=== PATIENT | male | born 1955 | race Caucasian/White ===

== ENCOUNTER 2023-02-20 08:21 | Day surgery (SDC) | payer MEDICARE, SELFPAY ==
--- NOTE | 2023-02-19 09:13 | HO.ANESPROP2 ---
Documented by User: Chuyita Liu NP 02/19/23 09:14 HPI - Anesthesia Eval Consult details Narrative: 67yo M for Colonoscopy [facility] Past Medical History Medical History (Updated 02/19/23 @ 06:58 by Mirtha Napier, SARMAD) Cardiology follow-up encounter Prostate cancer Internal hemorrhoids Abnormal colonoscopy Hiatal hernia Hyperlipidemia HTN (hypertension) Surgical History Surgical History (Updated 02/19/23 @ 06:58 by Mirtha Napier RN) H/O prostatectomy History of testicular surgery History of left knee surgery Social History Social History Advance Directives: No Advance Directives Information Provided: Yes Meds Allergies Allergy/AdvReac Type Severity Reaction Status Date / Time No Known Allergies Allergy Unverified 02/11/20 14:36 [No Known Allergies*] Home Medications Medication Instructions Recorded Confirmed Last Taken Type amlodipine 5 mg tablet 5 mg PO DAILY 02/19/23 Unknown History aspirin 81 mg tablet,delayed 81 mg PO DAILY 02/19/23 Unknown History release atorvastatin 80 mg tablet 80 mg PO DAILY 02/19/23 Unknown History ezetimibe 10 mg tablet 10 mg PO DAILY 02/19/23 Unknown History fluorouracil 5 % topical cream appl topical 02/19/23 Unknown History lisinopril 20 mg tablet 20 mg PO DAILY 02/19/23 Unknown History omeprazole 20 mg capsule,delayed 20 mg PO DAILY 02/19/23 Unknown History release Exam Exam Date and Time: February 19, [id number] Assessment and Plan Assessment Anesthesia Assessment: Chart Reviewed Documented by User: Michael Sutton MD 02/20/23 09:00 [facility] Past Medical History Medical History (Updated 02/19/23 @ 06:58 by Mirtha Napier, SARMAD) Cardiology follow-up encounter Prostate cancer Internal hemorrhoids Abnormal colonoscopy Hiatal hernia Hyperlipidemia HTN (hypertension) Family History Family history of problems with anesthesia: No Surgical History Surgical History (Updated 02/19/23 @ 06:58 by Mirtha Napier RN) H/O prostatectomy History of testicular surgery History of left knee surgery History of Problems with Anesthesia: No Social History Social History Advance Directives: No Advance Directives Information Provided: Yes Meds Allergies Allergy/AdvReac Type Severity Reaction Status Date / Time No Known Allergies Allergy Unverified 02/11/20 14:36 [No Known Allergies*] Home Medications Medication Instructions Recorded Confirmed Last Taken Type amlodipine 5 mg tablet 5 mg PO DAILY 02/19/23 Unknown History aspirin 81 mg tablet,delayed 81 mg PO DAILY 02/19/23 Unknown History release atorvastatin 80 mg tablet 80 mg PO DAILY 02/19/23 Unknown History ezetimibe 10 mg tablet 10 mg PO DAILY 02/19/23 Unknown History fluorouracil 5 % topical cream appl topical 02/19/23 Unknown History lisinopril 20 mg tablet 20 mg PO DAILY 02/19/23 Unknown History omeprazole 20 mg capsule,delayed 20 mg PO DAILY 02/19/23 Unknown History release Exam Airway Mallampati Class: II TM Dist: >3cm Neck ROM: Limited Heart: rrr Lungs: cta Assessment and Plan Assessment Anesthesia Assessment: Anesthesia Plan Discussed Final Anesthetic Review Family History of Problems with Anesthesia: No History of Problems with Anesthesia: No NPO: Yes ASA Class: II Final Preanesthetic Review: No Changes in Pt Med Stat, Meds/Allgs Chart Reviewed, Consent Obtained/Reviewed and Anes Risks/Benef Reviewed Patient Risk: Intermediate Procedure Risk: Low Anesthetic Plan Anesthetic Plan: MAC: and Agree w/ Assess. and Plan Disposition: Standard PACU
[2023-02-20 08:31] VITALS: BMI 26.4
[2023-02-20 09:07] VITALS: BP 137/85; PULSE 83; RESP 20; TEMP 36.1; O2SAT 98
[2023-02-20] MEDS: Lactated Ringers 1,000 ML 100 ML IVCONT (09:25)
[2023-02-20 11:21] VITALS: BP 108/48; PULSE 69; RESP 16; TEMP 36.5; O2SAT 98
--- NOTE | 2023-02-20 11:31 | P.BOP_ITS ---
Brief Operative Note Date of Service: 02/20/23 Pre-op diagnosis: Screening Post-op diagnosis: other (Diverticulosis) Procedure: Colonoscopy to the cecum and TI Surgeon: Vasquez Andersen Anesthesia: MAC Was an [employer] Man used for this Procedure?: No Estimated blood loss (mL): 0 Pathology: none sent Condition: stable Disposition: PACU
[2023-02-20 11:36] VITALS: BP 120/66; PULSE 65; RESP 16; TEMP 36.4; O2SAT 99
--- NOTE | 2023-02-20 12:09 | OP_ITS ---
DATE OF SERVICE: 02/20/2023 SURGEON: Vasquez Andersen MD INDICATIONS: The patient presents for evaluation of personal history of tubular adenoma of the colon and colorectal cancer screening. Full consent has been obtained from him for this, including risks of bleeding and perforation. PREOPERATIVE DIAGNOSIS: Colorectal cancer screening and personal history of tubular adenoma of the colon. POSTOPERATIVE DIAGNOSIS: PROCEDURE PERFORMED: Colonoscopy to the cecum and terminal ileum. ESTIMATED BLOOD LOSS: COMPLICATIONS: ANESTHESIA: Monitored anesthesia care. ASSISTANTS: SPECIMENS: POSTOPERATIVE DIAGNOSES: Colorectal cancer screening and personal history of tubular adenoma of the colon, mild sigmoid diverticulosis, and small internal hemorrhoids. DESCRIPTION OF PROCEDURE: The patient was placed in the left lateral decubitus position. The digital rectal exam revealed no abnormalities. The Olympus video pediatric colonoscope was entered into the rectum and advanced easily to the cecum. Once in the cecum, I did identify normal-appearing cecal pouch with appendiceal orifice and a normal-appearing ileocecal valve. The terminal ileum was cannulated and appeared normal. The scope was withdrawn back in the colon. The entire cecum and ileocecal valve appeared normal. The scope was slowly withdrawn assessing all mucosal surfaces carefully. Preparation was excellent. I did not visualize any sign of polyps, colitis, nor angiodysplasia. There was a mild amount of sigmoid diverticulosis. In the rectum, scope was retroflexed visualizing small internal hemorrhoids, but no other pathology. The rectal mucosa appeared normal. The scope was straightened and withdrawn from the patient. He tolerated the procedure well and was returned to the recovery area in stable condition. IMPRESSION: 1. Mild sigmoid diverticulosis. 2. Internal hemorrhoids. PLAN: I would recommend a repeat colonoscopy in 5 years for further screening purposes. He was advised that he could resume aspirin. This has been discussed with his . MD AGGIE Nicole/HIRALL / [id number]
== END 2023-02-20 12:34 | disposition home or self-care (01) ==
PROVIDERS: Visit Provider Internal Medicine
PROC: 0DJD8ZZ Inspection of Lower Intestinal Tract, Via Natural or Artificial Opening Endoscopic (ICD-10-PCS; CPT 45378; principal; 2023-02-20 09:50)
DX: Z12.11 Encounter for screening for malignant neoplasm of colon (principal); Z86.010 Personal history of colon polyps; K57.30 Diverticulosis of large intestine without perforation or abscess without bleeding; K64.8 Other hemorrhoids; K21.9 Gastro-esophageal reflux disease without esophagitis; I10 Essential (primary) hypertension; E78.5 Hyperlipidemia, unspecified; Z85.46 Personal history of malignant neoplasm of prostate; Z79.82 Long term (current) use of aspirin; Z79.899 Other long term (current) drug therapy; Z98.890 Other specified postprocedural states
CPT/HCPCS: G0105